=== PATIENT | female | born 1960 | race Native Hawaiian/Other Pacific Islander ===

== ENCOUNTER 2018-11-12 09:56 | Outpatient (CLI) | payer BC | END 2018-11-12 22:54 | disposition home or self-care (01) | LOC: MRI 09:56 | DX: M25.561 Pain in right knee (principal) ==

== ENCOUNTER 2019-03-15 15:51 | Outpatient (CLI) | payer OTHER | END 2019-03-15 19:30 | disposition home or self-care (01) | LOC: RAD 15:51 | DX: M25.561 Pain in right knee (principal) ==

== ENCOUNTER 2019-04-25 12:48 | Outpatient (CLI) | payer OTHER | END 2019-04-25 19:58 | disposition home or self-care (01) | LOC: RAD 12:48 | DX: M25.561 Pain in right knee (principal) ==

== ENCOUNTER 2019-11-01 13:34 | Outpatient (CLI) | payer OTHER | END 2019-11-01 23:56 | disposition home or self-care (01) | LOC: RAD 13:34 | DX: M25.561 Pain in right knee (principal) ==